=== PATIENT | female | born 1985 | race Caucasian/White ===

== ENCOUNTER 2017-01-26 06:25 | Day surgery (SDC) | payer MEDICAID ==
[2017-01-07 09:45] VITALS: BMI 27.4
[2017-01-26 07:01] VITALS: O2SAT 100
[2017-01-26] MEDS ORDERED: ceFAZolin IV 1 gm in Dextrose 1 GM/50 ML BAG IVPB ONE (07:19)
[2017-01-26] MEDS ORDERED: EPINEPHrine 1:1000 Nasal Sol(30mL) ONE (07:19)
[2017-01-26] MEDS ORDERED: Sodium Chloride 0.9% 20 ML IV ONE (07:20)
[2017-01-26] MEDS ORDERED: Lidocaine 2% w Epi 1:100,000 Inj IJ ONE (07:20)
[2017-01-26] MEDS ORDERED: Acetaminophen-Codeine 300/30 mg Tab PO PRN (08:14)
[2017-01-26] MEDS ORDERED: Dextrose 5%/0.45% NS 1,000 ML IV SCH (08:15)
[2017-01-26] MEDS ORDERED: Propofol 10 mg/ml Inj (20 ML) ONE (08:26)
[2017-01-26] MEDS ORDERED: Midazolam 2 MG/2 ML VIAL ONE (08:26)
[2017-01-26] MEDS ORDERED: Lidocaine Hydrochloride 5 ML INJ ONE (08:27)
[2017-01-26] MEDS ORDERED: Lactated Ringer's 1,000 ML IV ONE ×2 (08:30→10:40)
[2017-01-26] MEDS ORDERED: HYDROmorphone 0.5 mg/0.5 ml ISec IVP PRN (09:30)
--- NOTE | 2017-01-26 10:20 | OP ---
PROCEDURE DATE: 01/26/2017 PREOPERATIVE DIAGNOSES: Deviated septum, enlarged turbinates, sinusitis. POSTOPERATIVE DIAGNOSES: Deviated septum, enlarged turbinates, sinusitis. PROCEDURES: Septoplasty, endoscopic bilateral ethmoidectomy, endoscopic bilateral maxillary antrostomy, endoscopic bilateral sphenoidotomy, endoscopic bilateral inferior turbinate reduction. SIGNIFICANT FINDINGS: Sinusitis, deviated septum, enlarged turbinates. DESCRIPTION OF PROCEDURE: The patient was brought in the room, placed in supine position. Anesthesia was initiated through an ET tube. Adrenaline- soaked pledgets were inserted into the nasal cavity and remained there for at least 5 minutes and removed. The patient was draped in the usual manner. Navigation was set up and used throughout the case in order to ensure that the skull base and orbit were not entered. The septum was injected with lidocaine with epinephrine on both sides. A hemitransfixion incision was made and a mucoperichondrial flap was raised. A vertical incision was made in the cartilage leaving a 1.5 cm anterior and superior strut. The mucoperichondrial flap was raised on the other side. Deviated portion of the septum was removed using forceps and chisel. The anterior portion of the septum was noted to be deviated and scored using a knife. A quilting suture was used to suture the 2 flaps together and close the hemitransfixion incision. Next, a 0 degree scope was inserted in the nasal cavity. The inferior turbinates were noted to be enlarged on both sides. They were reduced first on the left then on the right using scissors, going from an inferior to superior, anterior to posterior direction. Bleeding was controlled using suction cautery. Attention was turned to the left. The middle turbinate was injected with lidocaine with epinephrine and medialized. The uncinate process was medialized using a [place] elevator and removed using forceps. The ethmoid bulla was entered inferomedially using a debrider going posteriorly to the basal lamella, then superiorly and anteriorly until the ethmoid bulla was removed. The basal lamella was entered. Posterior ethmoid cells were entered and opened. Skull base was identified and followed anteriorly all the way to the area of the anterior ethmoid air cells. Next, a curved suction hooked up to navigation was used to locate the maxillary antrum which was noted to be stenosed and opened using forceps. The sphenoid antrum was located and noted to be stenosed and opened using forceps. Attention was turned to the other side. The middle turbinate was then injected with lidocaine with epinephrine and medialized. The uncinate process was medialized using a [place] elevator and removed using forceps. Debrider was used to enter the ethmoid bulla inferomedially going posteriorly to the basal lamella, then anteriorly and superiorly until the ethmoid bulla was removed. The basal lamella was entered. Posterior ethmoid cells were entered and opened. Skull base was identified and followed anteriorly all the way to the area of the anterior ethmoid air cells. Sphenoid antrum was noted to be stenosed and opened using forceps. The maxillary antrum was noted to be stenosed and opened using forceps. Bleeding was controlled using suction cautery and adrenaline-soaked pledgets. Stents were placed. Splints were placed. The patient was taken off anesthesia and returned to recovery room in stable manner. Mateusz Negron MD cc: [id number] TT: 01/26/2017 10:20:38 damien PRESTON
[2017-01-26 12:17] VITALS: RESP 18
[2017-01-26 13:31] VITALS: BP 127/72; PULSE 63; TEMP 98
== END 2017-01-26 13:00 | disposition home or self-care (01) ==
LOC: C.SDS 06:25
PROVIDERS: ATTEND Otolaryngology
DX: J34.2 Deviated nasal septum (principal); J34.3 Hypertrophy of nasal turbinates; J32.0 Chronic maxillary sinusitis; J32.2 Chronic ethmoidal sinusitis; J32.3 Chronic sphenoidal sinusitis
CPT/HCPCS: 30130; 30520; 31255; 31256; 31287; 88304; J0690; J2250; J2405; J2704; J3010; J7120